=== PATIENT | male | born 1965 | race Caucasian/White ===

== ENCOUNTER 2019-04-15 08:46 | Emergency (ER) | payer BC ==
--- NOTE | 2019-04-15 09:17 | EDM.PDOC ---
ED HPI GENERAL MEDICAL PROBLEM - General Stated Complaint: L FOOT PAIN Time Seen by Provider: 04/15/19 09:30 Source of Information: Reports: Patient History Limitations: Reports: No Limitations - History of Present Illness INITIAL COMMENTS - FREE TEXT/NARRATIVE: 44-year-old male who reports that he awoke Tuesday morning with left foot pain. There was no known injury. [place] around but he had no pain. He reports that the pain is over the top medial aspect of his foot. He does feel there is some slight swelling in the area and it appears "bruised". It doesn't radiate. It is a sharp pain. When he stands on it or moves it, it is a 10/10. He has had no fevers. He has had no chills. He's had no dysuria. There's been no redness in the area. He has never had pain like this before. He has no other joint pains. There are no other associated signs or symptoms. There are no other modifying factors. Onset: Other (7 AM yesterday morning) Duration: Getting Worse Location: Reports: Lower Extremity, Left (Left foot) Quality: Reports: Sharp Severity: Moderate (to severe) Improves with: Reports: Immobilization, Rest Worsens with: Reports: Other (Palpation. Bearing weight.), Movement Context: Reports: Other (As above.) Associated Symptoms: Reports: No Other Symptoms Treatments [employer]: Reports: Other (see below) (Icor-nai-xaaircl medications.) Top of L foot Pain Score (Numeric/FACES): 10 - Related Data Allergies Allergy/AdvReac Type Severity Reaction Status Date / Time No Known Allergies Allergy Verified 04/15/19 09:31 Home Meds: Home Meds Hydrocodone/Acetaminophen [[place] 5-325 Tablet] 1 - 2 tab PO Q6H PRN #10 tablet 04/15/19 [Rx] Indomethacin [Indocin] 25 mg PO TID #40 cap 04/15/19 [Rx] Past Medical History - Past Health History Medical/Surgical History: Denies Medical/Surgical History - Past Surgical History Other Surgical History Comment: No previous surgeries. Social & Family History - Tobacco Use Smoking Status *Q: Current Every Day Smoker - Alcohol Use Alcohol Use History: Yes Alcohol Use Frequency: Rarely - Living Situation & Occupation Living situation: Reports: Occupation: Employed (Works at [employer]. He is on his feet quite a bit.) ED ROS GENERAL - Review of Systems Review Of Systems: See Below Constitutional: Reports: No Symptoms HEENT: Reports: No Symptoms Respiratory: Reports: No Symptoms Cardiovascular: Reports: No Symptoms Endocrine: Reports: No Symptoms GI/Abdominal: Reports: No Symptoms : Reports: No Symptoms Musculoskeletal: Reports: Foot Pain (Left foot pain) Skin: Reports: No Symptoms Neurological: Reports: No Symptoms Hematologic/Lymphatic: Reports: No Symptoms Immunologic: Reports: No Symptoms ED EXAM, GENERAL - Physical Exam Exam: See Below Exam Limited By: No Limitations General Appearance: Alert, WD/WN, No Apparent Distress Eye Exam: Bilateral Eye: EOMI, Normal Inspection, PERRL Ears: Normal External Exam, Hearing Grossly Normal Ear Exam: Bilateral Ear: Auricle Normal Nose: Normal Inspection, Normal Mucosa, No Blood Throat/Mouth: Normal Inspection, Normal Lips, Normal Oropharynx, Normal Voice, No Airway Compromise Head: Atraumatic, Normocephalic Neck: Normal Inspection, Supple, Non-Tender, Full Range of Motion Respiratory/Chest: No Respiratory Distress, Lungs Clear, Normal Breath Sounds, No Accessory Muscle Use, Chest Non-Tender Cardiovascular: Normal Peripheral Pulses, Regular Rate, Rhythm, No Murmur Peripheral Pulses: 2+: Radial (L), Radial (R), Dorsalis Pedis (L), Dorsalis Pedis (R) GI/Abdominal: Normal Bowel Sounds, Soft, Non-Tender, No Mass Extremities: Normal Range of Motion, No Pedal Edema, Normal Capillary Refill, Other (Tender over the mid second metacarpal area on the top of the left foot. There is no redness but there is some bruised appearance. There is some mild swelling. No fluctuant area. No increased warmth.). No: Increased Warmth, Redness Neurological: Alert, Oriented, CN II-XII Intact, Normal Cognition, No Motor/ Sensory Deficits Skin Exam: Warm, Dry, Intact, No Rash, Ecchymosis (On top of left foot, minimal) Course - Vital Signs Last Recorded V/S: Last Vital Signs Temp 36.6 C 04/15/19 08:46 Pulse 90 04/15/19 08:46 Resp 18 04/15/19 08:46 BP 127/86 04/15/19 08:46 Pulse Ox 100 04/15/19 08:46 - Orders/Labs/Meds Orders: Active Orders 24 hr Category Date Time Status Foot Comp Min 3V Lt [CR] Stat Exams 04/15/19 09:40 Taken Labs: Laboratory Tests 04/15/19 04/15/19 04/15/19 Range/Units 09:58 09:58 09:58 WBC 11.0 (4.5-12.0) X10-3/uL RBC 4.95 (4.30-5.75) x10(6)uL Hgb 15.0 (13.5-17.8) g/dL Hct 42.6 (30.0-51.3) % MCV 86.1 (80-96) fL MCH 30.3 (27.7-33.6) pg MCHC 35.1 (32.2-35.4) g/dL RDW 12.9 (11.5-15.5) % Plt Count 279 (125-369) X10(3)uL MPV 8.7 (7.4-10.4) fL Neut % (Auto) 73.8 (46-82) % Lymph % (Auto) 18.1 (13-37) % [place] % (Auto) 6.3 (4-12) % Eos % (Auto) 1 (1.0-5.0) % Baso % (Auto) 0 (0-2) % Neut # (Auto) 8.0 (1.6-8.3) # Lymph # (Auto) 2.0 (0.6-5.0) # [place] # (Auto) 0.7 (0.0-1.3) # Eos # (Auto) 0.2 (0.0-0.8) # Baso # (Auto) 0.0 (0.0-0.2) # ESR 8 (0-15) mm/hr Uric Acid 7.7 H (2.6-6.0) mg/dL C-Reactive Protein 0.5 (0.5-0.9) mg/dL - Radiology Interpretation Free Text/Narrative:: Left foot x-ray shows no acute abnormality. - Re-Assessments/Exams Free Text/Narrative Re-Assessment/Exam: 04/15/19 10:54: X-ray of the patient's left foot showed no definite abnormality. His blood tests were all reassuringly normal except his uric acid was slightly elevated. Albeit a somewhat unusual location for gout, I feel that this most probably is an acute gouty arthritis attack. I will place the patient on Indocin 25 mg 3 times a day for 7 days and then as needed. He should stay off of his left foot as much as possible for the next few days. I will also give the patient a small prescription of hydrocodone 5/325 for severe pain. Off work until 04/18/2019. Departure - Departure Time of Disposition: 11:05 Disposition: Home, Self-Care 01 Condition: Good Clinical Impression: Acute pain of left foot, Hyperuricemia Gout attack Qualifiers: Gout site: foot Gout etiology: unspecified cause Laterality: left Qualified Code(s): M10.9 - Gout, unspecified - Discharge Information Prescriptions: Hydrocodone/Acetaminophen [[place] 5-325 Tablet] 1 - 2 tab PO Q6H PRN #10 tablet PRN Reason: Moderate to severe pain Indomethacin [Indocin] 25 mg PO TID #40 cap Instructions: Gout, [id number] Referrals: Terrell Fink MD [Primary Care Provider] - Forms: ED Return to Work/School Form Additional Instructions: The x-ray of your left foot showed no acute abnormality. Your blood tests were all reassuringly normal except for a slightly elevated uric acid. You appear to be having an acute gouty arthritis attack in your left foot. You should stay off of your left foot as much as possible for the next few days. I have given you off work until 04/18/2019. Medication as prescribed (Indocin 25 mg, hydrocodone 5/325). Follow-up with your primary doctor. Back to the emergency department for increasing pain, redness, increased swelling, fever or any other concerning sign or symptom. - My Orders Last 24 Hours: My Active Orders 04/15/19 09:40 Foot Comp Min 3V Lt [CR] Stat - Assessment/Plan Last 24 Hours: My Active Orders 04/15/19 09:40 Foot Comp Min 3V Lt [CR] Stat
--- NOTE | 2019-04-16 13:59 | CR ---
INDICATION: Left foot pain, no injury history. LEFT FOOT: Three views of the left foot revealed no significant bone or joint abnormality. If an occult bony abnormality is suspected clinically, nuclear bone imaging or CT may be helpful for further evaluation. MTDD
== END 2019-04-15 11:25 | disposition home or self-care (01) ==
LOC: FB.ED 08:46
DX: M10.9 Gout, unspecified (principal); E79.0 Hyperuricemia without signs of inflammatory arthritis and tophaceous disease
CPT/HCPCS: 36415; 73630-LT; 84550; 85025; 85651; 86140; 99283-25

== ENCOUNTER 2019-08-09 06:46 | Emergency (ER) | payer BC ==
[2019-08-09] MEDS ORDERED: Ketorolac 60 MG/2 ML SDV IM ONE (07:33)
--- NOTE | 2019-08-09 07:41 | EDM.PDOC ---
ED HPI GENERAL MEDICAL PROBLEM - General Chief Complaint: General Stated Complaint: ABCESS TOOTH Time Seen by Provider: 08/09/19 07:30 Source of Information: Reports: Patient History Limitations: Reports: No Limitations - History of Present Illness INITIAL COMMENTS - FREE TEXT/NARRATIVE: [facility] with a swollen L mandible over the past 3 days. He is aware of a deep dental ana, and has had sensitivity for over a month. He has had dental infections in the past that necessitated extractions. He has no med allergies. Tylenol has not helped. - Related Data Allergies Allergy/AdvReac Type Severity Reaction Status Date / Time No Known Allergies Allergy Verified 04/15/19 09:31 Home Meds: Home Meds Hydrocodone/Acetaminophen [[place] 5-325 Tablet] 1 - 2 tab PO Q6H PRN #10 tablet 04/15/19 [Rx] Indomethacin [Indocin] 25 mg PO TID #40 cap 04/15/19 [Rx] Clindamycin HCl 300 mg PO TID #14 capsule 08/09/19 [Rx] Past Medical History - Past Health History Medical/Surgical History: Denies Medical/Surgical History - Infectious Disease History Infectious Disease History: Reports: Chicken Pox, Measles, Mumps - Past Surgical History Other Surgical History Comment: No previous surgeries. Social & Family History - Family History Family Medical History: Noncontributory - Caffeine Use Caffeine Use: Reports: Coffee, Energy Drinks, Soda - Living Situation & Occupation Living situation: Reports: Occupation: Employed (Works at [employer]. He is on his feet quite a bit.) ED ROS GENERAL - Review of Systems Review Of Systems: Comprehensive ROS is negative, except as noted in HPI. ED EXAM, GENERAL - Physical Exam Exam: See Below Exam Limited By: No Limitations General Appearance: Alert, WD/WN, Anxious, Mild Distress Eye Exam: Bilateral Eye: EOMI, Normal Inspection, PERRL Ears: Normal External Exam Nose: Normal Inspection Throat/Mouth: Normal Lips, Normal Oropharynx, Normal Voice, Other (tenderness # 13 with deep buccal caries and some swelling, multiple other teeth with caries; ) Head: Facial Swelling (L mandible) Neck: Normal Inspection, Supple, Non-Tender, Full Range of Motion Respiratory/Chest: Lungs Clear Cardiovascular: Regular Rate, Rhythm, No Murmur Extremities: Normal Inspection Neurological: Alert, Oriented, CN II-XII Intact, Normal Cognition, Normal Gait, No Motor/Sensory Deficits Psychiatric: Normal Affect, Anxious Skin Exam: Warm, Dry, Intact, Normal Color, No Rash Lymphatic: No Adenopathy Course - Vital Signs Text/Narrative:: Following assessment, I administered Toradol 60 mg IM for pain management. - Orders/Labs/Meds Meds: Medications Discontinued Medications Generic Name Dose Route Start Last Admin Trade Name Freq PRN Reason Stop Dose Admin Ketorolac Tromethamine 60 mg 08/09/19 07:33 Toradol IM 08/09/19 07:34 ONETIME ONE Departure - Departure Time of Disposition: 07:45 Disposition: Home, Self-Care 01 Condition: Fair Clinical Impression: Infected dental caries - Discharge Information *PRESCRIPTION DRUG MONITORING PROGRAM REVIEWED*: Not Applicable *COPY OF PRESCRIPTION DRUG MONITORING REPORT IN PATIENT [place]: Not Applicable Prescriptions: Clindamycin HCl 300 mg PO TID #14 capsule - Problem List & Annotations (1) Infected dental caries SNOMED Code(s): 30314070 Code(s): K02.9 - DENTAL CARIES, UNSPECIFIED; K04.7 - PERIAPICAL ABSCESS WITHOUT SINUS Status: Acute Annotation/Comment:: I dispensed Clindamycin 300 mg cap tid, and strongly urged a DDS appt. for surgical managment. He may take oral NSAIDs in the interim. - Problem List Review Problem List Initiated/Reviewed/Updated: Yes - Assessment/Plan Plan: Follow up with DDS.
== END 2019-08-09 08:04 | disposition home or self-care (01) ==
LOC: FB.ED 06:46
DX: K04.7 Periapical abscess without sinus (principal); K02.9 Dental caries, unspecified
CPT/HCPCS: 96372; 99282; J1885